=== PATIENT | female | born 2000 | race Caucasian/White ===

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

== ENCOUNTER → 2021-08-24 | Outpatient (CLI) | payer BC ==
--- NOTE | 2021-08-24 18:06 | Diagnostic Imaging Report ---
PROCEDURE: US Thyroid. TECHNIQUE: Multiple real-time grayscale images were obtained of the thyroid in various projections. INDICATION: Enlarged thyroid COMPARISON: None available FINDINGS: The right lobe of the thyroid gland is borderline enlarged measuring 5.8 x 1.6 x 1.2 cm. It maintains a homogeneous echotexture without discrete nodule. The left lobe of the thyroid gland measures 4.1 x 1.6 x 1.3 cm. It maintains a homogeneous echotexture without discrete nodule. The isthmus is unremarkable. IMPRESSION: The right lobe of the thyroid gland is borderline enlarged. Remainder of the examination is unremarkable without thyroid nodule. Dictated by: Dictated on workstation # [id number]
== END ==
LOC: RAD 15:30
PROVIDERS: ATTEND Surgery
DX: E04.9 Nontoxic goiter, unspecified (principal)
CPT/HCPCS: 76536

== ENCOUNTER → 2022-02-25 | Outpatient (CLI) | payer BC ==
--- NOTE | 2022-02-25 14:06 | Diagnostic Imaging Report ---
PROCEDURE: Pelvic comp/transvaginal sonogram. TECHNIQUE: Complete transabdominal and transvaginal pelvic ultrasound was performed. In addition, limited pelvic Doppler was performed. INDICATION: Left lower quadrant pain. Uterus is anteverted measuring 5.7 x 2.7 x 3.8 cm. Endometrium is 4 mm in thickness. No myometrial mass is detected. Right ovary measures 3.0 x 1.5 x 2.7 cm and the left ovary measures 2.4 x 1.7 x 1.5 cm. Ovaries contain small follicles. There is blood flow to both ovaries. No adnexal mass or free fluid is seen. IMPRESSION: Unremarkable transabdominal and transvaginal pelvic ultrasound. Dictated by: Dictated on workstation # [id number]
== END ==
LOC: RAD 12:46
PROVIDERS: ATTEND Surgery
DX: R10.32 Left lower quadrant pain (principal)
CPT/HCPCS: 76830; 76856

== ENCOUNTER → 2022-07-05 | Outpatient (CLI) | payer BC ==
--- NOTE | 2022-07-05 10:11 | Diagnostic Imaging Report ---
CLINICAL INDICATION: Patient with right upper quadrant pain. EXAM: Right upper quadrant ultrasound. COMPARISON: CT scan of the abdomen and pelvis without contrast dated 09/03/2014. FINDINGS: Bowel gas obscures portions of the pancreas. Pancreas is not well is less on this exam. Visualized portions of the proximal abdominal aorta is unremarkable. Visualized portions IVC is grossly unremarkable. The liver measures 17.9 cm. Liver surface is smooth. There is diffuse hyperechogenicity seen throughout the liver. Main portal vein demonstrates hepatopetal flow. There is no intrahepatic or extrahepatic ductal dilation. Common bile duct measures 3 mm. The gallbladder is unremarkable, no stones or sludge. There is no gallbladder wall thickening or pericholecystic fluid. There is no sonographic Holm sign. The right kidney measures 11.6 cm in craniocaudal dimension. There is no hydronephrosis, stone, or mass. There is no abdominal ascites. IMPRESSION: 1: There is no acute abnormality involving this right upper quadrant ultrasound exam. 2: There is diffuse hyperechogenicity seen throughout the liver which may be related to fatty infiltration. Dictated by: Dictated on workstation # [id number]
== END ==
LOC: RAD 08:21
PROVIDERS: ATTEND Surgery
DX: R10.11 Right upper quadrant pain (principal)
CPT/HCPCS: 76705

== ENCOUNTER → 2022-07-25 | Outpatient (CLI) | payer BC ==
[~2022-07-25] MED LIST: CATHETER FLUSH 10 ML SYR IVP PRN
--- NOTE | 2022-07-25 13:33 | Diagnostic Imaging Report ---
INDICATION: Right upper quadrant pain. TECHNIQUE: The patient was administered 5.2 mCi of technetium 99m Choletec intravenously and imaging over the abdomen was performed. At 45 minutes, the patient ingested 8 ounces of Ensure and a gallbladder ejection fraction was calculated. FINDINGS: There is homogeneous uptake of activity by the liver with prompt excretion of activity into the gallbladder and common duct. There is normal passage of activity into the small bowel. The gallbladder ejection fraction is normal at 52%. IMPRESSION: Normal HIDA scan and gallbladder ejection fraction. Dictated by: Dictated on workstation # [id number]
== END ==
LOC: CARD 09:28
PROVIDERS: ATTEND Surgery
DX: R10.11 Right upper quadrant pain (principal)
CPT/HCPCS: 78227; A9537